=== PATIENT | female | born 1960 | race Hispanic/Latino ===

== ENCOUNTER 2018-08-24 02:06 | Emergency (ER) | payer BC ==
[2018-08-24 02:39] LABS: Absolute Lymphocytes (CBC) 2.2 K/uL (0.7-4.9); Eosinophils % 1.2 % (0-4.4); Hematocrit 39.9 % (36.0-45.0); Lymphocytes % 23.7 % (15.3-44.8); MPV 10.2 fL (7.6-11.3); Monocytes % 5.9 % (3.3-12.3); RBC Red Blood Cell Count 5.11 M/uL (3.86-4.86)
[2018-08-24] MEDS ORDERED: ONDANSETRON 4 MG/2 ML VIAL ONE (02:46)
[2018-08-24] MEDS ORDERED: LIDOCAINE VISCOUS 2% SOLN 15 ML UDC ONE (02:46)
[2018-08-24] MEDS ORDERED: MAGNE/ALUM HYDROXD 30 ML UCUP ONE (02:46)
[2018-08-24 02:55] LABS: BUN Blood Urea Nitrogen 14 mg/dL (7-18); Bicarbonate 29 mmol/L (21-32); Glucose Level 109 mg/dL (74-106); Potassium 3.5 mmol/L (3.5-5.1); Sodium Level 142 mmol/L (136-145); Troponin (Emerg Dept Use Only) < 0.02 ng/mL (0.0-0.045)
[2018-08-24] MEDS ORDERED: MEPERIDINE HCL 25 MG/0.5 ML ONE (03:25)
--- NOTE | 2018-08-24 04:55 | EDPHYS ---
Physician Documentation [facility] Name: Katia Bermudez Age: 58 yrs Sex: Female : 1960 Arrival Date: 08/24/2018 Time: 02:09 Bed 5 Private MD: ED Physician Aldair Madrid HPI: 08/24 02:20 This 58 yrs old Female presents to ER via Unassigned with complaints of rn vomiting. 02:20 The patient or guardian reports chest pain that is located primarily in the epigastric rn area, anterior chest wall. Onset: 2 month(s) ago. The pain does not radiate. The chest pain is described as a heaviness, causing indigestion. Duration: The patient or guardian reports multiple episodes, that are intermittent. Modifying factors: The symptoms are alleviated by nothing. the symptoms are aggravated by nothing. Severity of pain: At its worst the pain was moderate in the emergency department the pain is unchanged. The patient has experienced similar episodes in the past. Reports has been having intermittent chest pressure/heaviness for 2 months now, had negative stress test in [place] 2 weeks ago, has been seeing Dr. Carrillo, has endoscopy scheduled for tomorrow, reports 3 hours of worsening chest pain, similar to previous episodes, but reports this time not getting better after vomiting. Reports just put on H. Pylori medication for + test. . Historical: - Allergies: 02:27 No Known Allergies; ak1 - Home Meds: 02:27 Carafate Oral [Active]; prevealite [Active]; omeprazole Oral [Active]; Bystolic 5 mg ak1 oral tab 1 tab once daily [Active]; simvastatin 20 mg Oral tab 1 tab once daily [Active]; - PMHx: 02:27 HPylori; GERD; ak1 - PSHx: 02:27 Hysterectomy; left kidney removal; ak1 - Immunization history:: Adult Immunizations unknown. - Social history:: Smoking status: Patient/guardian denies using tobacco. - Family history:: not pertinent. - Ebola Screening: : No symptoms or risks identified at this time. - Hospitalizations: : No recent hospitalization is reported. ROS: 02:20 Constitutional: Negative for fever, chills, and weight loss, Eyes: Negative for injury, rn pain, redness, and discharge, Neck: Negative for injury, pain, and swelling, Cardiovascular: Negative for palpitations, and edema, Respiratory: Negative for shortness of breath, cough, wheezing, and pleuritic chest pain, Abdomen/GI: Negative for abdominal pain, diarrhea, and constipation, MS/Extremity: Negative for injury and deformity, Skin: Negative for injury, rash, and discoloration, Neuro: Negative for headache, weakness, numbness, tingling, and seizure. Exam: 02:20 Constitutional: This is a well developed, well nourished patient who is awake, alert rn Head/Face: Normocephalic, atraumatic. Eyes: Pupils equal round and reactive to light, extra-ocular motions intact. Lids and lashes normal. Conjunctiva and sclera are non-icteric and not injected. Cornea within normal limits. Periorbital areas with no swelling, redness, or edema. ENT: MMM Neck: Trachea midline, no thyromegaly or masses palpated, and no cervical lymphadenopathy. Supple, full range of motion without nuchal rigidity, or vertebral point tenderness. No Meningismus. Cardiovascular: Regular rate and rhythm with a normal S1 and S2. No pulse deficits. Respiratory: Lungs have equal breath sounds bilaterally, clear to auscultation. No increased work of breathing, no retractions or nasal flaring. Abdomen/GI: soft, non-tender Skin: Warm, dry with normal turgor. Normal color with no rashes, no lesions, and no evidence of cellulitis. MS/ Extremity: Pulses equal, no cyanosis. Neurovascular intact. Full, normal range of motion. Equal circumference. Neuro: Awake and alert, GCS 15, oriented to person, place, time, and situation. Cranial nerves II-XII grossly intact. Motor strength 5/5 in all extremities. Sensory grossly intact. Cerebellar exam normal. Normal gait. 03:14 ECG was reviewed by the Attending Physician. rn Vital Signs: 02:23 BP 162 / 81; Pulse 62; Resp 20; Temp 98.3; Pulse Ox 99% on R/A; Weight 87.09 kg (R); ak1 Height 5 ft. 4 in. (162.56 cm) (R); Pain 10/10; 03:26 BP 146 / 81; Pulse 56; Resp 18; Pulse Ox 100% ; ea 04:30 BP 117 / 78; Pulse 61; Resp 18; Pulse Ox 98% on R/A; ea 05:15 BP 111 / 80; Pulse 68; Resp 18; Pulse Ox 100% on R/A; ea 02:23 Body Mass Index 32.96 (87.09 kg, 162.56 cm) ak1 MDM: 02:11 Patient medically screened. rn 03:24 ED course: Pt improved, labs normal, ecg normal, trop normal. States these chest pains rn happen after eating, most likely acid related, will get repeat trop but if negative will dc home especially given negative stress test 2 weeks ago.. 04:53 Differential diagnosis: acute myocardial infarction, acute pericarditis, anxiety, rn coronary artery disease costochondritis, esophagitis, gastritis, gastroesophageal reflux disease (GERD), pericarditis. Data reviewed: vital signs, nurses notes, lab test result(s), EKG, radiologic studies, and as a result, I will discharge patient. Counseling: I had a detailed discussion with the patient and/or guardian regarding: the historical points, exam findings, and any diagnostic results supporting the discharge/admit diagnosis, lab results, radiology results, the need for outpatient follow up, to return to the emergency department if symptoms worsen or persist or if there are any questions or concerns that arise at home. Response to treatment: the patient's symptoms have mildly improved after treatment, and as a result, I will discharge patient. Special discussion: Based on the patient's history, exam, and Dx evaluation, there is no indication for emergent intervention or inpatient Tx. It is understood by the patient/guardian that if the Sx's persist or worsen they need to return immediately for re-evaluation. I discussed with the patient/guardian in detail that at this point there is no indication for admission to the hospital. It is understood, however, that if the symptoms persist or worsen the patient needs to return immediately for re-evaluation. 08/24 02:20 Order name: CBC with Diff; Complete Time: 02:58 rn 08/24 02:20 Order name: Basic Metabolic Panel; Complete Time: 02:58 rn 08/24 02:20 Order name: Troponin (emerg Dept Use Only); Complete Time: 02:58 rn 08/24 02:20 Order name: XRAY Chest (1 view) rn 08/24 03:24 Order name: Troponin (emerg Dept Use Only): draw at 0420; Complete Time: 05:22 rn 08/24 02:20 Order name: IV Start; Complete Time: 02:30 rn 08/24 02:20 Order name: EKG; Complete Time: 02: rn 08/24 02:20 Order name: EKG - Nurse/Tech; Complete Time: 02:37 rn EC:14 Rate is 60 beats/min. Rhythm is regular. QRS [place] is Normal. RI interval is normal. QRS rn interval is normal. QT interval is normal. No Q waves. T waves are Normal. No ST changes noted. Clinical impression: Normal ECG. Interpreted by me. Reviewed by me. Administered Medications: 02:32 Drug: Zofran 4 mg Route: IVP; Site: right antecubital; ea 03:18 Follow up: Response: No adverse reaction; Nausea is decreased ea 02:37 Drug: GI Cocktail without - (Maalox Suspension 30 ml, Lidocaine Liquid 2 % 15 ea ml) Route: PO; 03:17 Follow up: Response: No adverse reaction; Pain is unchanged, physician notified ea 03:17 Drug: Demerol 25 mg Route: IVP; Site: right antecubital; ea 03:45 Follow up: Response: No adverse reaction; Pain is decreased ea Disposition: 08/24/18 04:53 Discharged to Home. Impression: Gastro-esophageal reflux disease, Chest pain, unspecified. - Condition is Stable. - Discharge Instructions: Nonspecific Chest Pain, Gastroesophageal Reflux Disease, Adult. - Medication Reconciliation Form, Thank You Letter, Antibiotic Education, Prescription Opioid Use form. - Follow up: Private Physician; When: As needed; Reason: Recheck today's complaints, Re-evaluation by your physician. - Problem is an ongoing problem. - Symptoms have improved. Signatures: Dispatcher [employer] EDAK Aldair Madrid MD MD rn Krenek, Amber RN RN Felicita Bautista RN RN ea Corrections: (The following items were deleted from the chart) 05:27 04:53 08/24/2018 04:53 Discharged to Home. Impression: Gastro-esophageal reflux ea disease; Chest pain, unspecified. Condition is Stable. Forms are Medication Reconciliation Form, Thank You Letter, Antibiotic Education, Prescription Opioid Use. Follow up: Private Physician; When: As needed; Reason: Recheck today's complaints, Re-evaluation by your physician. Problem is an ongoing problem. Symptoms have improved. rn
--- NOTE | 2018-08-24 04:55 | ER ---
Nurse's Notes [facility] Name: Katia Bermudez Age: 58 yrs Sex: Female : 1960 Arrival Date: 08/24/2018 Time: 02:09 Bed 5 Private MD: Diagnosis: Gastro-esophageal reflux disease;Chest pain, unspecified Presentation: 08/24 02:23 Presenting complaint: Patient states: chest pain to center of chest with vomiting X3 ak1 hours. pt was to have GI scope today, canceled by Dr. Carrillo due to "throat infection". Transition of care: patient was not received from another setting of care. Onset of symptoms is unknown. Risk Assessment: Do you want to hurt yourself or someone else? Patient reports no desire to harm self or others. Initial Sepsis Screen: Does the patient meet any 2 criteria? No. Patient's initial sepsis screen is negative. Does the patient have a suspected source of infection? No. Patient's initial sepsis screen is negative. Care prior to arrival: None. 02:23 Method Of Arrival: Ambulatory ak1 02:23 Acuity: [place] 3 ak1 Triage Assessment: 02:27 General: Appears uncomfortable, Behavior is cooperative. Pain: Complains of pain in ak1 epigastric area. Historical: - Allergies: 02:27 No Known Allergies; ak1 - Home Meds: 02:27 Carafate Oral [Active]; prevealite [Active]; omeprazole Oral [Active]; Bystolic 5 mg ak1 oral tab 1 tab once daily [Active]; simvastatin 20 mg Oral tab 1 tab once daily [Active]; - PMHx: 02:27 HPylori; GERD; ak1 - PSHx: 02:27 Hysterectomy; left kidney removal; ak1 - Immunization history:: Adult Immunizations unknown. - Social history:: Smoking status: Patient/guardian denies using tobacco. - Family history:: not pertinent. - Ebola Screening: : No symptoms or risks identified at this time. - Hospitalizations: : No recent hospitalization is reported. Screenin:28 Abuse screen: Denies threats or abuse. Denies injuries from another. Nutritional ak1 screening: No deficits noted. Tuberculosis screening: No symptoms or risk factors identified. Fall Risk None identified. Assessment: 02:37 General: Appears in no apparent distress. Behavior is calm, cooperative, appropriate ea for age. Pain: Complains of pain in epigastric area. Neuro: Level of Consciousness is awake, alert, obeys commands, Oriented to person, place, time, situation. Cardiovascular: Patient's skin is warm and dry. Respiratory: Airway is patent Respiratory effort is even, unlabored, Respiratory pattern is regular, symmetrical. Derm: Skin is pink, warm \\T\\ dry. Musculoskeletal: Circulation, motion, and sensation intact. 03:22 Reassessment: Patient and/or family updated on plan of care and expected duration. Pain ea level reassessed. Patient is alert, oriented x 3, equal unlabored respirations, skin warm/dry/pink. Pt reports nausea has decreased but pain is still the same, provider notified, medication order obtained, medication administered, pt tolerated well. 04:38 Reassessment: Patient and/or family updated on plan of care and expected duration. Pain ea level reassessed. Patient is alert, oriented x 3, equal unlabored respirations, skin warm/dry/pink. Awaiting on second troponin. 05:24 Reassessment: Patient and/or family updated on plan of care and expected duration. Pain ea level reassessed. Patient is alert, oriented x 3, equal unlabored respirations, skin warm/dry/pink. Discharge instruction given to patient, verbalized the understanding of instruction. Pt left ED ambulatory accompanied by significant other, tolerating well Patient states feeling better. Patient states symptoms have improved. Vital Signs: 02:23 BP 162 / 81; Pulse 62; Resp 20; Temp 98.3; Pulse Ox 99% on R/A; Weight 87.09 kg (R); ak1 Height 5 ft. 4 in. (162.56 cm) (R); Pain 10/10; 03:26 BP 146 / 81; Pulse 56; Resp 18; Pulse Ox 100% ; ea 04:30 BP 117 / 78; Pulse 61; Resp 18; Pulse Ox 98% on R/A; ea 05:15 BP 111 / 80; Pulse 68; Resp 18; Pulse Ox 100% on R/A; ea 02:23 Body Mass Index 32.96 (87.09 kg, 162.56 cm) ak1 ED Course: 02:09 Patient arrived in ED. ag3 02:11 Aldair Madrid MD is Attending Physician. rn 02:24 Triage completed. ak1 02:27 Arm band placed on Patient placed in an exam room, on a stretcher, on pulse oximetry, ak1 Patient notified of wait time. 02:28 Patient has correct armband on for positive identification. Bed in low position. Call ak1 light in reach. Side rails up X 1. Adult w/ patient. Pulse ox on. NIBP on. 02:29 Felicita Patrick, RN is Primary Nurse. ea 02:29 Inserted saline lock: 20 gauge in right antecubital area, using aseptic technique. ea Blood collected. 02:45 X-ray completed. Portable x-ray completed in exam room. Patient tolerated procedure ls3 well. 02:46 XRAY Chest (1 view) In Process Unspecified. EDMS 05:25 No provider procedures requiring assistance completed. IV discontinued, intact, ea bleeding controlled, No redness/swelling at site. Pressure dressing applied. Administered Medications: 02:32 Drug: Zofran 4 mg Route: IVP; Site: right antecubital; ea 03:18 Follow up: Response: No adverse reaction; Nausea is decreased ea 02:37 Drug: GI Cocktail without - (Maalox Suspension 30 ml, Lidocaine Liquid 2 % 15 ea ml) Route: PO; 03:17 Follow up: Response: No adverse reaction; Pain is unchanged, physician notified ea 03:17 Drug: Demerol 25 mg Route: IVP; Site: right antecubital; ea 03:45 Follow up: Response: No adverse reaction; Pain is decreased ea Outcome: 04:53 Discharge ordered by . rn 05:25 Discharged to home ambulatory, with significant other. ea 05:25 Condition: improved 05:25 Discharge instructions given to patient, Instructed on discharge instructions, follow up and referral plans. Demonstrated understanding of instructions, follow-up care. 05:27 Patient left the ED. ea Signatures: Dispatcher [employer] EDMS Aldair Madrid MD MD rn Krenek, Amber RN RN ak1 Felicita Patrick, Domonique Feng RN, ea ls3 Cheryl Gonzales ag3 Corrections: (The following items were deleted from the chart) 05:27 05:24 Reassessment: Patient and/or family updated on plan of care and expected ea duration. Pain level reassessed. Patient is alert, oriented x 3, equal unlabored respirations, skin warm/dry/pink. Discharge instruction given to patient, verbalized the understanding of isntruction Patient states feeling better. Patient states symptoms have improved. ea
--- NOTE | 2018-08-24 08:06 | RAD REPORT ---
EXAM DESCRIPTION: Edy Single View08/24/2018 2:47 am CLINICAL HISTORY: Chest pain COMPARISON: 2017 FINDINGS: The lungs appear clear of acute infiltrate. The heart is borderline enlarged IMPRESSION: No acute abnormalities displayed
--- NOTE | 2018-08-24 08:11 | EKG ---
Test Date: 2018-08-24 Test Time: 02:25:56 Deposition Reporter: LIZZETH MEASUREMENT RESULTS: Intervals: Rate: 60 TN: 132 QRSD: 82 QT: 374 QTc: 374 [place]: P: -11 TN: 132 QRS: -5 T: -8 INTERPRETIVE STATEMENTS: Normal sinus rhythm Normal ECG Compared to ECG 11/30/2002 09:05:00 No significant changes Electronically Signed On 08-24-18 08:11:21 CDT by Lenny Jaffe
== END 2018-08-24 05:27 | disposition home or self-care (01) ==
LOC: ER 02:06
DX: K21.9 Gastro-esophageal reflux disease without esophagitis (principal); R07.9 Chest pain, unspecified
CPT/HCPCS: 36415; 71045; 80048; 84484; 85025; 93005; 96374; 96375; 99284; J2175; J2405

== ENCOUNTER 2021-01-21 09:46 | Day surgery (SDC) | payer OTHER ==
[2021-01-18 12:04] LABS: Urine Appearance CLEAR (Clear); Urine Bilirubin NEGATIVE (Negative); Urine Blood NEGATIVE (Negative); Urine Color YELLOW (Yellow); Urine Glucose NEGATIVE (Negative); Urine Protein NEGATIVE (Negative); Urine Specific Gravity 1.015 (1.005-1.030)
[2021-01-18 12:05] LABS: Urine Microscopic Reflex ORDER UMIC
[2021-01-18 12:12] LABS: Basophils % 0.8 % (0-1.3); Hematocrit 41.8 % (36.0-45.0); Lymphocytes % 27.6 % (15.3-44.8); MPV 9.6 fL (7.6-11.3); RBC Red Blood Cell Count 5.25 M/uL (3.86-4.86)
[2021-01-18 12:15] LABS: Potassium 3.9 mmol/L (3.5-5.1)
[2021-01-18 12:18] LABS: Protime INR 0.98
[2021-01-18 12:33] LABS: Urine Bacteria <20 /HPF (<20); Urine RBC <5 /HPF (NONE SEEN)
[2021-01-18 12:34] LABS: Urine Mucus LIGHT /HPF (NONE SEEN)
[2021-01-21] MEDS ORDERED: Ringers Lactate 1,000 ML IV ONE ×2 (10:14→15:17)
[2021-01-21] MEDS ORDERED: ACETAMINOPHEN 500 MG TAB PO ONE (10:58)
[2021-01-21] MEDS ORDERED: ACETAMINOPHEN 500 MG TAB ONE (11:02)
[2021-01-21] MEDS ORDERED: MIDAZOLAM HCL 2 MG/2 ML INJ ONE (11:16)
[2021-01-21] MEDS ORDERED: FENTANYL CITR 100 MCG/2 ML ONE ×2 (11:16→15:01)
[2021-01-21] MEDS ORDERED: LIDOCAINE 1% MPF 2 ML AMPULE ONE (11:16)
[2021-01-21] MEDS ORDERED: propofoL 200 MG/20 ML VIAL IV ONE (11:16)
[2021-01-21] MEDS ORDERED: dexAMETHasone 10 MG/ML VIAL ONE (11:18)
[2021-01-21] MEDS ORDERED: GLYCOPYRROLATE 0.2 MG/ML SYR ONE ×3 (11:18→15:54)
[2021-01-21] MEDS ORDERED: KETOROLAC 30 MG/ML INJ ONE (11:18)
[2021-01-21] MEDS ORDERED: ONDANSETRON 4 MG/2 ML VIAL ONE ×3 (11:19→17:39)
[2021-01-21] MEDS ORDERED: ROCURONIUM 50 MG/5 ML VIAL IV ONE ×2 (11:27→14:22)
[2021-01-21] MEDS ORDERED: NA CHLORIDE 0.9% 100 ML IV ONE (11:53)
[2021-01-21] MEDS: CEFAZOLIN/SWI 2gm 2 GM/20 ML SYR ONE ×2 (13:07→13:20)
[2021-01-21] MEDS: CEFAZOLIN/NS 1gm 1 GM/50 ML BAG ONE ×2 (13:07→13:40)
[2021-01-21] MEDS: BUPIVACAINE 0.25% PF 10 ML VIAL ONE ×2 (13:08→13:29)
[2021-01-21] MEDS: VASOPRESSIN 20 UNIT/ML VIAL ONE ×2 (13:08→13:29)
[2021-01-21] MEDS ORDERED: NEOSTIGMINE 1 MG/ML -5 ML ONE (16:41)
[2021-01-21] MEDS ORDERED: HYDROMORPHONE HCL 1 MG/ML INJ ONE (17:39)
[2021-01-21] MEDS ORDERED: HYDROMORPHONE HCL 1 MG/ML INJ IV PRN (17:58)
[2021-01-21] MEDS ORDERED: PROMETHAZINE INJ 25 MG/ML AMP IV PRN (17:58)
[2021-01-21 18:12] VITALS: O2SAT 99
[2021-01-21 18:48] VITALS: BMI 32.4
[2021-01-21] MEDS: Ringers Lactate 1,000 ML IV SCH (20:32)
[2021-01-21] MEDS: ACETAMINOPHEN 500 MG TAB PO PRN (22:17)
[2021-01-22] MEDS: Ringers Lactate 1,000 ML IV SCH (04:16)
[2021-01-22] MEDS: ACETAMINOPHEN 500 MG TAB PO PRN ×2 (04:26→09:37)
[2021-01-22 06:35] LABS: Absolute Lymphocytes (CBC) 1.1 K/uL (0.7-4.9); Basophils % 0.2 % (0-1.3); Hematocrit 33.8 % (36.0-45.0); RBC Red Blood Cell Count 4.32 M/uL (3.86-4.86)
[2021-01-22 07:23] VITALS: BP 139/79; TEMP 98.5
--- NOTE | 2021-01-22 08:04 | P.BOP ---
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
--- NOTE | 2021-01-25 09:56 | OP ---
Date of Procedure: 01/22/2021 Surgeon: Joelle Lake MD Aerobics Teacher: Anette Tolentino. 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 Postoperative Diagnoses: Stage II anterior and posterior wall prolapse, stress urinary incontinence, perineal body defect, and anterior apical enterocele. Procedures: Bilateral sacrospinous ligament fixation, colpopexy using biological graft augmented ant erior repair as an apical repair and the same approach, then posterior repair, perineorrhaphy, then m id urethral sling (tension-free vaginal tape and cystoscopy). Anesthesia: General with LMA. Specimens: No specimens. Estimated Blood Loss: 200. Complications: No complications. Drains: Stone catheter. Implants Removed: Her biologic graft and TVTO. Fluids In: 1200 LR. Urine Output: 250. Findings: POP-Q was 0, +1, 0, 5, moderate, 6, 6, -1, +1, and the patient's canal appeared to be shor ter and there was bleeding the right paravaginal area, which was treated with FloSeal and there was g ood hemostasis at the end of the case. Indications: The patient is a 60-year-old female, who presented with symptoms of incomplete emptying . 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 She almonte s been worried about recurrent frequent urinary tract infections with no other risk factors. Her vul vovaginal atrophy and prolapse were the 2. She was treated by her primary care and referred for furt her treatment here with us. Once the patient was evaluated in the office and all the options were di scussed, the patient declined pessary, wanted surgical repair. Discussed about the sacral colpopexy versus a vaginal biologic graft with anterior-posterior repairs. Since the patient had other abdomin al surgery, she preferred to have a vaginal repair. She is status post total vaginal hysterectomy, b ilateral salpingo-oophorectomy in 2008 for large ovarian cyst. Family history with a sister with ova caitlyn and uterine cancers. No bladder pathology was noted on cystoscopy. Urodynamic studies were performed to assess her voidin g function. She was found to have voiding dysfunction with a continuous fluctuating pattern on her u roflow. On her pressure flow study, her flow rate was low, pressures were mostly normal, however, ov er 40 cm of water and her postvoid residual on the testing was 20 and 60 cc each on both times. Her baseline bladder pressure was slightly elevated at 26 cm of water and she had notably significant dec rease in her capacity, increase in her sensation, and decrease in her stability field representative/health education of sev ere overactive bladder. Her maximal urethral closure pressure was 106, however, she did have signifi cant hypermobility did not demonstrate any leakage at this point. We discussed all the options with the patient including vaginal laparoscopic repair, placement of a sling or observation with further t reatment as needed if incontinence is noted after the procedure. The patient decided to proceed with the anti-incontinence procedure as well for in a prophylactic fashion, which was reasonable given th e findings the patient had the chance of obstruction, sling revision were all reviewed with the patie nt. Further the repair either [place] tissue or biologic graft augmented repairs were reviewed with t he patient. As she has had other surgery, she preferred to have a vaginal route and there is a diffi culty in bringing her vaginal wall to the sacrospinous without excessive tension. Then, the graft wa s suitable and all the outcomes and recurrence rates with the graft were that compared with [place] ti ssue repairs and the sacral colpopexy. The patient was counseled appropriately and consented for ant erior-posterior repair, biologic graft augmented, sacrospinous fixation, then an enterocele repair as needed and perineal body repair if needed and mid urethral sling. She was consented and brought to the OR. 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 Procedure In Detail: After she was reconsented in the preop area, taken back to the OR, placed in perry pine fashion on the operating table after general anesthesia was given. She was placed in dorsal lit hotomy position and lower abdomen, vulva, vagina, medial thighs, and perineum were prepped and draped in a sterile fashion. Stone was placed to drain the bladder and clamped and retracted superiorly. The urethrovesical junction was identified. The POP-Q was as above. She had more of anterior apical defect than the posterior defect and the length of the vagina appeared to be slightly shorter than w hat was measured in the office. Once the urethrovesical junction was identified, there was some rugae here could be field representative/health education of underlying connective tissue still present intact. This was held with an Allis clamp and then the a pex was held with an Allis clamp. Then, the midline injection with dilute vasopressin was done, midl ine incision was made, and dissected the bladder away all the way to the paravaginal space on both si keeley. There was minimal to no connective tissue noted in this plane. Once the paravaginal area space was accessed and pararectal space was entered and the ischial spine was palpated and sacrospinous li gament was cleaned up by sweeping medially and posteriorly on the coccygeus sacrospinous ligament com plex. Once this was cleaned up and the rectum was moved medially, then the white line was cleared up as well easily palpable. On the opposite side, similar dissection was performed taking down to the left paravaginal space and pararectal space, ischial spine palpated and sacrospinous ligament cleaned up and white line cleared up. The apex was dissected all the way down. There was a clear enterocele, which was repaired with the help of a 3-0 Vicryl in a pursestring fashion. Once this was reduced, then proceeded to take the biologic graft and fashion it an 8 x 6 x 5, the 8 and 5 are the proximal and distal borders of the g raft and the vertical length was 6 cm from the anterior-posterior direction. Probably this was sligh tly longer than what I would have wanted for a tighter repair, but given the shorter length of the va carolee, having some extra length was thought to be more functional for this younger patient and so it w as fashioned as above. The proximal fixation at the vaginal apex was with 2-0 PDS x3, 1 in the center and then on either amara es. These were first placed on the patient's tissue then attached the graft, sacrospinous ligament s uture with Prolene Capio was used and placed at least 2-3 cm medial to the ischial spine on the sacro spinous ligament. Then, the PDS Capio was used for the white line at least 2 fingerbreadths from the ischial spine laterally and superiorly. The suture here had to be repaired twice as I got other tis joyce from the base of the Capio. On the second set, there was satisfactory positioning of the suture. Then, on the opposite side sacrospinous Prolene was placed and PDS on the white line without any pr oblems. They were held uninflamed after the proximal fixation was done, distal part of the graft usu ally I have attached this. Given the longer length of the graft, I decided to anchor the sacrospinou s sutures onto the graft first before I did the distal fixation. A nguyen knot was placed on the biologic graft on the Prolene sutures. Then, laterally at the white line on the right side, there was bleeding most likely from my second suture that I placed with the C apio. This was packed and once the sacrospinous sutures were tied down, then the PDS sutures were an chored to the graft at least 3-4 cm away from the sacrospinous suture. Then packing was still left i n place and the distal attachment was made since the sacrospinous sutures were tied. I could figure out the anchoring length and once this was done, I was able to place a 2-0 PDS in the center on both sides at the distal end, attached to the graft and then tied down. Then, the lateral PDS sutures wer e tied down. Once all this was tied down and there was still some bright red blood, I decided to carlos ce the FloSeal on the right side. Once this was placed and the vaginal epithelium was slightly blake ed, maybe less than half a centimeter in toto, after placing a Juliana to make the edges aligned proper ly, then closure was performed with the help of a 2-0 Vicryl in a continuous running locked fashion. There was good apical support and lateral support distally, slightly more sag in the bladder. Then, it is perfect, which was done for the reason of the vaginal length. The cystocele was reduced just to decrease the bulge with the help of 2-0 PDS. The sling was then performed, mid urethral area picked up with 2 Allis clamps, injected with dilute v asopressin. Tracts on the connective tissue were made, going to the ipsilateral obturator space, inf erior pubic ramus. Once the scissors were opened up, the tract was opened up and the same procedure was done on the opposite side as well. Then, wing guide was placed. Plastic sheath and spike were p assed in the appropriate area and brought out at the appropriate exit point and a line drawn at the l evel of the external meatus 2 cm lateral to the groin fold avoiding the adductor tendon, similar pass on the opposite side. The sling was tensioned with the help of an Allis in the center with at least half a centimeter of the sling in it. Before the plastic sheaths were pulled out after partially lo osened, I was able to see the tensioning of the sling, which was appropriate to loosen up and not too tight. Then, the sheaths were pulled out. The external groin incisions were closed with Dermabond and after irrigation with antibiotic solution, the vaginal epithelial closure was done with a 3-0 Beto ryl in a continuous running fashion. Stone was removed, cystoscopy was performed. There was slight torque in the layout of the into the u reteric ridge because of the prolapse repair. There was a good jet of urine from the right ureteric orifice. No evidence of any other bladder trauma or foreign body here. Stone was replaced and retracted superiorly. Then, posterior repair was done. Allis clamps placed on remnants of the hymenal ring and dilute vasopressin injected on the perineal b tatyana as well as in the posterior wall. The posterior wall was de-epithelialized in a hilario-shaped f ashion. Then, the flaps were raised and the connective tissue was dissected to expose the entire pos terior wall all the way down to the perineal body. The incision was extended to the perineum vertica lly to expose this as well as there was significant perineal body defect. The posterior repair was p erformed with the help of a 2-0 PDS in a continuous running fashion, closing the defect and then recr eating the perineal body with 2-0 PDS with a 2-0 Vicryl, then reattaching this to the perineal body a nd then the PDS was closed on the top. Then further perineal body repair was performed with the help of 2-0 Vicryl sutures x3 on the perineum as well, and vaginal epithelium was closed with the help of a 2-0 Vicryl until the hymen and then perineal repair with a 0 Vicryl subcutaneous and subcuticular closure. Rectal exam was performed, no evidence of injury. There was good tenriism of the ct tech ior wall these were in attachment to the apex. A slight narrowing in the mid canal may be in the lower 1/3 to the junction of the lower 1/3 and the upper 2/3, but this would still permit at least 3 fingers space slightly apart, which would be adequa te for coital function and lying ways at least 6-7 cm. This was at the length of at least 7 cm. The genital hiatus was reduced to at least 3.5 cm without ridge or bridge on the perineum. Instrument, needle, and sponge counts were correct at the end of the case. EBL was 200. No further bleeding was noted here even on the posterior repair. The patient was recovered from anesthesia and taken to PACU in stable condition. She will be observed overnight with a PACU criteria, which was st able notably later and then her urine output stayed adequate overnight. She was discharged after goo d voiding trial where she was able to empty with very minimal PVR. SONNY/DAVY Voice ID: [id number] Report ID: [id number]
== END 2021-01-22 11:10 | disposition home or self-care (01) ==
LOC: OR 09:46 → 2ND-WC 17:58 → OR 01-22 11:10
PROVIDERS: ATTEND Obstetrics & Gynecology
PROC: 0TSD0ZZ Reposition Urethra, Open Approach (ICD-10-PCS; 2021-01-21)
PROC: 0UQF0ZZ Repair Cul-de-sac, Open Approach (ICD-10-PCS; 2021-01-21)
PROC: 0JQC0ZZ Repair Pelvic Region Subcutaneous Tissue and Fascia, Open Approach (ICD-10-PCS; 2021-01-21)
PROC: 0HQ9XZZ Repair Perineum Skin, External Approach (ICD-10-PCS; 2021-01-21)
PROC: 0USG7ZZ Reposition Vagina, Via Natural or Artificial Opening (ICD-10-PCS; principal; 2021-01-21 12:00)
DX: N99.3 Prolapse of vaginal vault after hysterectomy (principal); N95.2 Postmenopausal atrophic vaginitis; N39.3 Stress incontinence (female) (male); N32.81 Overactive bladder; Z87.440 Personal history of urinary (tract) infections; Z20.822 Contact with and (suspected) exposure to COVID-19
CPT/HCPCS: 85025 ×2; 87086; 80048; 36415 ×2; 86900; 86850; 85610; 86901; 85730; 85018; 85014; 94010; 57282; 57288; 57265; U0003; J2704; J2250; J3010 ×2; J1100; J1170; J2710; J0690 ×2; J7120 ×4; J2405 ×3; 81003; 81015; 87088

== ENCOUNTER 2022-04-14 07:57 | Observation (INO) | payer OTHER ==
[2022-04-11 16:21] LABS: Absolute Lymphocytes (CBC) 1.8 K/uL (0.7-4.9); Hematocrit 37.5 % (36.0-45.0); Lymphocytes % 27.4 % (15.3-44.8); MCV 78.5 fL (80-100); MPV 9.3 fL (7.6-11.3); RBC Red Blood Cell Count 4.77 M/uL (3.86-4.86)
--- NOTE | 2022-04-11 16:39 | RAD REPORT ---
EXAM DESCRIPTION: Edy Lazaro (2 Views)04/11/2022 4:17 pm CLINICAL HISTORY: Preop for umbilical hernia surgery. COMPARISON: 2019 FINDINGS: The lungs appear clear of acute infiltrate. The heart is normal size IMPRESSION: No acute abnormalities displayed
[2022-04-14] MEDS ORDERED: CEFAZOLIN SODIUM 1 GM/VIAL ONE (08:37)
[2022-04-14] MEDS ORDERED: Ringers Lactate 1,000 ML IV ONE (08:37)
[2022-04-14] MEDS ORDERED: FENTANYL CITR 100 MCG/2 ML ONE (09:03)
[2022-04-14] MEDS ORDERED: propofoL 200 MG/20 ML VIAL IV ONE (09:03)
[2022-04-14] MEDS ORDERED: MIDAZOLAM HCL 2 MG/2 ML INJ ONE (09:03)
[2022-04-14] MEDS ORDERED: ROCURONIUM 50 MG/5 ML VIAL IV ONE ×2 (09:03→10:38)
[2022-04-14] MEDS ORDERED: LIDOCAINE 2% MPF 5 ML VIAL ONE (09:03)
[2022-04-14] MEDS ORDERED: ONDANSETRON 4 MG/2 ML VIAL ONE ×2 (09:04→12:21)
[2022-04-14] MEDS ORDERED: dexAMETHasone 10 MG/ML VIAL ONE (10:03)
[2022-04-14] MEDS ORDERED: EPHEDRINE SULF 50 MG/ML VIAL ONE (10:27)
[2022-04-14] MEDS ORDERED: GLYCOPYRROLATE 0.2 MG/ML SYR ONE ×3 (10:27→11:24)
[2022-04-14] MEDS ORDERED: NEOSTIGMINE 1 MG/ML -10 ML VIAL ONE (11:24)
[2022-04-14] MEDS ORDERED: SODIUM CHLORIDE 0.9% 10ML INJ IV PRN (11:45)
--- NOTE | 2022-04-14 11:45 | P.BOP ---
Preoperative diagnosis: incarcerated incisional ventral hernia infraumbilical Postoperative diagnosis: same plus extensive dense adhesions with small bowel involved Primary procedure: 1. Laparoscopic repair incarcerated incisional ventral hernia with mesh Secondary procedure: 2. Laparoscopic lysis of adhesions Estimated blood loss: <20cc Specimen: none Findings: several loop of small bowel densely adhered to anterior abdominal wall Anesthesia: General Complications: None Implants: ventralight ST with echo PS, sorbafix Transferred to: Recovery Room Condition: Good
[2022-04-14] MEDS: HYDROMORPHONE HCL 1 MG/ML INJ IV PRN ×2 (12:18→12:28)
[2022-04-14] MEDS ORDERED: HYDROMORPHONE HCL 1 MG/ML INJ ONE (12:21)
[2022-04-14 12:36] VITALS: O2SAT 95
[2022-04-14] MEDS: NA CHLORIDE 0.9% 1,000 ML IV SCH (13:51)
[2022-04-14] MEDS: HYDROCODONE/APAP 5/325 MG TAB PO PRN ×2 (13:56→18:50)
[2022-04-14 14:04] VITALS: BMI 34.0
[2022-04-14] MEDS: CEFOXITIN 1 GM in NA CHLORIDE 0.9% 50 ML IVPB SCH (17:08)
--- NOTE | 2022-04-14 18:47 | EKG ---
Test Date: 2022-04-11 Test Time: 16:00:44 Tractor Mechanic Helper: YISSEL MEASUREMENT RESULTS: Intervals: Rate: 60 VA: 146 QRSD: 80 QT: 376 QTc: 376 [place]: P: 50 VA: 146 QRS: -11 T: 27 INTERPRETIVE STATEMENTS: Normal sinus rhythm Normal ECG Compared to ECG 08/24/2018 02:25:56 No significant changes Electronically Signed On 04-14-22 18:42:45 SECURITY SERVICES SPECIALIST by Jac Marina
[2022-04-15] MEDS: CEFOXITIN 1 GM in NA CHLORIDE 0.9% 50 ML IVPB SCH ×2 (00:45→05:39)
[2022-04-15] MEDS: NA CHLORIDE 0.9% 1,000 ML IV SCH ×3 (00:46→10:34)
[2022-04-15] MEDS: ONDANSETRON 4 MG/2 ML VIAL IV PRN ×2 (00:57→10:34)
[2022-04-15] MEDS: HYDROMORPHONE HCL 1 MG/ML INJ IV PRN ×2 (00:57→08:23)
[2022-04-15 05:54] LABS: Absolute Lymphocytes (CBC) 1.5 K/uL (0.7-4.9); Hematocrit 36.7 % (36.0-45.0); Lymphocytes % 12.7 % (15.3-44.8); MCV 79.4 fL (80-100); MPV 9.2 fL (7.6-11.3); RBC Red Blood Cell Count 4.62 M/uL (3.86-4.86)
[2022-04-15 06:10] LABS: Potassium 4.5 mmol/L (3.5-5.1)
[2022-04-15] MEDS ORDERED: PANTOPRAZOLE 40 MG INJ IVP SCH (09:00)
--- NOTE | 2022-04-15 11:36 | P.DS ---
Admission Date: 04/14/22 Discharge Date: 04/15/22 Disposition: ROUTINE DISCHARGE Discharge Condition: GOOD Brief History of Present Illness: see HPI Hospital Course: unremarkable Vital Signs/Physical Exam: Temp Pulse Resp BP Pulse Ox 97.6 F 65 16 141/73 H 95 04/15/22 08:00 04/15/22 08:00 04/15/22 08:53 04/15/22 08:00 04/15/22 08:53 General: Alert, In no apparent distress, Oriented x3, Cooperative HEENT: Atraumatic, PERRLA, EOMI Neck: Supple Respiratory: Normal air movement Cardiovascular: No edema, Normal pulses Gastrointestinal: Soft and benign Musculoskeletal: No swelling, No erythema, No tenderness, No warmth Integumentary: No rashes, No breakdown Neurological: Normal speech Laboratory Data at Discharge: WBC 11.90 K/uL (4.3-10.9) H 04/15/22 05:24 Hgb 11.9 g/dL (12.0-15.0) L 04/15/22 05:24 Hct 36.7 % (36.0-45.0) 04/15/22 05:24 Plt Count 216 K/uL (152-406) 04/15/22 05:24 Sodium 137 mmol/L (136-145) 04/15/22 05:24 Potassium 4.5 mmol/L (3.5-5.1) 04/15/22 05:24 BUN 17 mg/dL (7-18) 04/15/22 05:24 Creatinine 0.91 mg/dL (0.55-1.02) 04/15/22 05:24 Glucose 116 mg/dL (74-106) H 04/15/22 05:24 Home Medications: Celecoxib [Celebrex] 100 mg PO BEDTIME 01/18/21 Nebivolol HCl [Bystolic] 10 mg PO BEDTIME 01/18/21 Omeprazole [Prilosec] 40 mg PO BEDTIME 01/18/21 Simvastatin 10 mg PO BEDTIME 01/18/21 Physician Discharge Instructions: MAy remove outer dressing tomorrow and shower. Apply triple antibiotic to staple line and gauze Diet: AHA Activity: No lifting more than 10 lbs Followup: Rachel Monroe FNP [Primary Care Provider] - If your Symptoms Worsen Italo Hardin MD [ACTIVE - CAN ADMIT] - 1 Week
[2022-04-15 12:46] VITALS: BP 136/72; TEMP 97.3
--- NOTE | 2022-04-28 17:04 | DS ---
Date of Discharge: 04/15/2022 Diagnoses: Incarcerated incisional ventral hernia and extensive intraabdominal adhesions Procedure: Laparoscopic repair of incarcerated incisional ventral hernia with mesh and laparoscopic lysis of adhesions. Disposition: Home. Activity: As tolerated. No heavy lifting. Plan: Follow up in my office in 1 week. Call for appointment at [phone]. Keep the area dry for 48 hours. Abdominal binder to be present, we explained that to her. We will see her in my office. ANN/DAVY Voice ID: [id number] Report ID: [id number]
--- NOTE | 2022-04-28 17:30 | OP ---
Date of Procedure: 04/14/2022 Surgeon: Italo Hardin MD Preoperative Diagnosis: Incarcerated incisional ventral hernia, infraumbilical. Postoperative Diagnoses: Incarcerated incisional ventral hernia, infraumbilical, extensive intraabdo gunnar adhesions with small bowel involvement. Primary Procedures: 1.Laparoscopic repair of incarcerated incisional ventral hernia with mesh. 2.Extensive laparoscopic lysis of adhesions. Estimated Blood Loss: Less than 20 cc. Specimen: None. Findings: Several loops of small bowel densely adhered to the anterior abdominal wall. It took half the time of the surgery or probably a little more just to deal with those adhesions and bringing thi s abdominal wall away from the adhesions without enterotomies. Anesthesia: General plus local. Implant: Ventralight ST with an Echo Positioning System and SorbaFix. Complications: None. Indication: This is the case of a 62-year-old patient, who comes to us with abdominal pain and a lopez tral hernia. The benefits, alternatives, and risks of laparoscopic possible open repair of ventral h ernia with mesh fully explained to the patient, which include, but not limited to infection, bleeding , damage to adjacent structures, anesthesia complication, recurrence, MS, and even . She also u nderstands this may not relieve any symptoms. She might need more than one surgical intervention. S he also understand we may be using mesh in that region, so mesh pros and cons were discussed with the patient and after all the question were answered to her satisfaction, she signed a consent. She und erstands the importance also of losing weight and avoiding heavy lifting to diminish the chance of re currence. Procedure In Detail: The patient was brought to the operating room, placed in supine position. Anes thesia was done without complication. Abdominal area was prepped and draped in the usual sterile fas hion. Local anesthesia was applied for area to be incised. Incision was made in the ventral region. The incision was carried down to fascia. We suspected we might have the adhesions underneath that scar tissue, so we made a first incision away to avoid the chance of injuring the bowel and when we w ent in and under direct visualization put a trocar, our suspicions were true, there was small bowel a ttached to the anterior abdominal wall, so we put several trocars in the abdomen to allow us __ spend time carefully to do this lysis of adhesions since they are trapped in the small bowel into the anterior abdominal wall and needs to be removed in order for us to be able to fix this hernia sin ce some bowel was going to the hernia too. We spent more than half of the case just doing the lysis of adhesions in a safe fashion and I am glad to mention that we did not do any enterotomies. No blee ding. Once we have a small bowel safe and the adhesions done, we were able to visualize the defect a nd we selected a mesh to overlap the area of repair about 3 to 5 cm. That will be a [facility] with Echo Positioning System. An incision was made just in the center where we were going to put that mesh. We approximated the fascial edges to do double repair of that region, put the mesh insid e there, inflated the balloon and that gave me nice and straight mesh that covered the defect. We se cured that in place circumferentially with SorbaFix. The fascia was approximated. Then, the defect is airproof. At that moment, I checked once again the area of the lysis of adhesions, looks intact w ith no bleeding. The mesh looks anteriorly. I placed anteriorly and fixed circumferentially to avoi d intestines coming in between. We removed the trocars under direct visualization after deflating an d also deflating the pneumoperitoneum and then closed the fascial defects and the skin. The patient tolerated the procedure well. Sponge count, instrument counts correct. The patient was sent to [facility] very in stable condition. ANN/DAVY Voice ID: [id number] Report ID: [id number]
== END 2022-04-15 12:45 | disposition home or self-care (01) ==
LOC: OR 07:57 → 4TH 12:54
PROVIDERS: ADMIT Surgery; ATTEND Surgery
PROC: 0DNW4ZZ Release Peritoneum, Percutaneous Endoscopic Approach (ICD-10-PCS; 2022-04-14)
PROC: 0WUF4JZ Supplement Abdominal Wall with Synthetic Substitute, Percutaneous Endoscopic Approach (ICD-10-PCS; principal; 2022-04-14 09:45)
DX: K43.0 Incisional hernia with obstruction, without gangrene (principal); K66.0 Peritoneal adhesions (postprocedural) (postinfection)
CPT/HCPCS: 49594; 49329; 93005; 85025 ×2; 80048 ×2; 36415 ×2; 71046; 97116; 97161; 94010 ×2; G0379; J2704; J2710; J2001; C9113; J2250; J3010; J1100; J1170 ×3; J7120; J7030 ×3; J0694 ×3; J2405 ×4; J0690; G0378 ×2